=== PATIENT | female | born 1985 | race Caucasian/White ===

== ENCOUNTER 2020-04-17 17:30 | Emergency (ER) | payer MEDICAID, SELFPAY ==
[2020-04-17 17:32] VITALS: BP 137/92; PULSE 90; RESP 20; O2SAT 98; BMI 25.1
--- NOTE | 2020-04-17 18:10 | CT_ITS ---
PROCEDURE: CT ABDOMEN PELVIS W CON CLINICAL INDICATION: abd pain Lower abdominal pain COMPARISON: No exams were available for comparison TECHNIQUE: IV Contrast: 75ML OPTIRAY 350 Oral Contrast None Axial images obtained with sagittal and coronal reformats. All CT scans at the facility use one or more dose reduction, viz: automated exposure control, ma/kV adjustment per patient size (including targeted exams where dose is matched to indication, i.e. head), or iterative reconstruction technique. FINDINGS: LOWER THORAX: No acute finding ABDOMEN & PELVIS: Prior cholecystectomy. The liver, spleen, adrenal glands, and pancreas have an unremarkable appearance. Nonobstructing bilateral renal calculi are present measuring up to 4 mm on the left and 3 mm on the right. No hydronephrosis. No evidence of appendicitis intestinal obstruction or free air. Prior hysterectomy. There is a mild amount of retained colonic feces. No acute bony findings. IMPRESSION: 1. No acute intra-abdominal or pelvic findings. 2. Nonobstructing bilateral renal calculi. 3. Mild amount of retained colonic feces Dictated by: Manohar Olson MD 04/18/2020 08:47 Electronically signed by Manohar Olson MD in [facility] 04/18/2020 08:47
--- NOTE | 2020-04-17 18:52 | [facility].EDGENADL ---
ED Disposition Clinical Impression: Allergic reaction to drug, Contact dermatitis, Nephrolithiasis Disposition: Home, Self-Care Condition on Discharge: Good Instructions: DI for Skin Abscess Additional Instructions: These follow-up with urologist. - Critical Care Critical Care Time: No Attestation: On 04/17/20, the high probability of a clinically significant, sudden or life threatening deterioration of the following system(s) required my full and direct attention, intervention and personal management. The time I documented below is in addition to time spent performing reported procedures but includes the following listed in this critical care notation. Medical Decision Making - Medical Records Medical records reviewed: Yes: I reviewed the patient's medical records. - Kieran Inquiry Pt receiving controlled substance: No Vital Signs: 04/17/20 17:32 Pulse Rate [Radial] 90 Respiratory Rate 20 Blood Pressure [Right Arm] 137/92 H Blood Pressure Mean [Right Arm] 107 Blood Pressure Source [Right Arm] Automatic Cuff Blood Pressure Position [Right Arm] Sitting 02 Sat by Pulse Oximetry 98 Oxygen Delivery Method Room Air - Lab Data Lab results reviewed: Yes: I reviewed the patient's lab results. Orders (Tests/Meds): ED MEDICATIONS Generic Name Dose Route Start Last Admin Trade Name Freq PRN Reason Stop Dose Admin Sodium Chloride 8 ml 04/17/20 17:39 Sodium Chloride 0.9% 10ml Vial IV 05/17/20 17:38 NEEDED PRN dilute pepcid Triamcinolone Acetonide 30 gm 04/17/20 21:00 04/17/20 17:53 Kenalog 0.1% Cream 30gm Tube TP 05/17/20 20:59 1 dose BID YANDY Administration Discontinued Medications Generic Name Dose Route Start Last Admin Trade Name Freq PRN Reason Stop Dose Admin Famotidine 20 mg 04/17/20 17:39 04/17/20 17:46 Pepcid 20mg/2ml Vial IV 04/17/20 17:40 20 mg ONCE ONE Administration Ioversol 75 ml 04/17/20 18:30 04/17/20 18:31 Rad-Optiray 350 100ml Vial IV 04/17/20 18:31 75 ml ONCE ONE Administration Protocol Methylprednisolone Sodium Succinate 125 mg 04/17/20 17:39 04/17/20 17:46 Solu-Medrol 125mg/2ml Vial IV 04/17/20 17:40 125 mg ONCE ONE Administration Sodium Chloride 10 ml 04/17/20 18:30 04/17/20 18:31 Rad-Saline Flush 10ml Syringe IV 04/17/20 18:31 10 ml ONCE ONE Administration ORDERS Category Date Time Status CT abdomen pelvis w con Stat Cat Scan 04/17/20 18:10 Taken - CT Data CT Scan: Abdomen, Pelvis Time Received: 18:[address] Reviewed: Yes: I have viewed the radiologist's interpretation Preliminary Findings: Abnormal (No acute intra-abdominal pathology except for nephrolithiasis that is stable. Also large amount of stool in the sigmoid colon indication for constipation.) Medical Decision Narrative: For the acute pain hydrocodone 10 mg every 4-6 hours as needed dispense quantity 18 no refills General Adult HPI - General Chief complaint: Skin/Abscess/Foreign Body Stated complaint: Abdominal pain Time Seen by Provider: 04/17/20 18:53 Mode of Arrival: Ambulatory Source of Information: Patient Limitations: No Limitations Description of Symptoms (Recalled from ER Triage Doc. by RN): Rash all over body. Itches. Also having issues with abdominal pain once or twice a month. - History of Present Illness HPI narrative: 34-year-old female presents the ED with suprapubic pelvic pain and itching. Patient states that she was out in the yard and possibly got exposed to some poison saad. She has a generalized rash and is complaining about excessive pruritus. Also patient is complaining about these intermittent episodes of abdominal pain suprapubic pain almost in the flank flank area. She states it comes on and goes and it usually last 2 to 3 days and then she will go 3 to 4 months with absolutely no pain. Patient does states she has a history of kidney stones. Patient does rate her pain at its crescendo a
[2020-04-17 19:09] VITALS: BP 137/92; PULSE 90; RESP 20; TEMP 36.7; O2SAT 98
== END 2020-04-17 19:11 | disposition home or self-care (01) ==
PROVIDERS: Emergency Provider Family Medicine
DX: L23.7 Allergic contact dermatitis due to plants, except food (principal); N20.0 Calculus of kidney; Z87.442 Personal history of urinary calculi
CPT/HCPCS: 74177; 96374; 96375; 99282; Q9967